=== PATIENT | male | born 1950 | race Caucasian/White ===

== ENCOUNTER 2016-07-30 08:50 | Observation (INO) | payer MEDICARE, OTHER ==
[2016-07-30] VITALS (7 sets, daily range): BP systolic 117–138; BP diastolic 70–77; PULSE 63–69; RESP 18–20; TEMP 97.8; Ht 170.2 cm; Wt 64.5 kg
[~2016-07-30] VITALS: Ht 170.2 cm; Wt 64.5 kg
[~2016-07-30 08:50] MED LIST: HYDR-3498 PO; METF500T4 PO; NAPR-260 PO
[2016-07-30] MEDS ORDERED: NITROGLYCERIN 2% 1 GM OINT PKT TD STA (11:10)
[2016-07-30] MEDS ORDERED: ASPIRIN 81 MG TAB PO STA (11:10)
[2016-07-30] MEDS ORDERED: NITROGLYCERIN (SL) 0.4 MG TAB SL PRN (11:30)
[2016-07-30 11:40] LABS: ADD SCAN DIFF NO
[2016-07-30 11:58] LABS: BASOPHIL # 0.1 10^3/ul (0.0-0.1); BASOPHILS % 1.6 % (0.0-2.0); EOSINOPHILS # 0.1 10^3/ul (0.0-0.5); EOSINOPHILS % 2.3 % (0.0-7.0); HEMATOCRIT 42.3 % (42.0-52.0); LYMPHOCYTES # 2.1 10^3/ul (0.8-2.9); LYMPHOCYTES % 36.7 % (15.0-51.0); MEAN CORPUSCULAR HGB CONC 33.1 g/dl (32.0-37.0); MEAN CORPUSCULAR VOLUME 87.6 fl (82.0-101.0); MEAN PLATELET VOLUME 12.8 fl (7.4-10.4); MONOCYTE # 0.5 10^3/ul (0.3-0.9); MONOCYTES % 9.1 % (0.0-11.0); NEUTROPHIL # 2.8 10^3/ul (1.6-7.5); NEUTROPHILS % 49.9 % (39.0-77.0); PLATELET COUNT 160 10^3/UL (140-415); RED BLOOD COUNT 4.83 10^6/ul (4.70-6.10); RED CELL DISTRIBUTION WIDTH 12.5 % (11.5-14.5); WHITE BLOOD COUNT 5.6 10^3/ul (4.8-10.8)
[2016-07-30 12:04] LABS: CHLORIDE 97 mmol/L (97-110); POTASSIUM 4.5 mmol/L (3.5-5.1); SODIUM 137 mmol/L (135-144)
[2016-07-30 12:06] LABS: CREATININE 0.61 mg/dl (0.61-1.24)
[2016-07-30 12:07] LABS: ANION GAP 14 (8-16); BLOOD UREA NITROGEN 11 mg/dl (7-20); CALCIUM 9.7 mg/dl (8.4-10.2); CARBON DIOXIDE 31 mmol/L (21-31); GLUCOSE 391 mg/dl (70-220); INR 0.97; PARTIAL THROMBOPLASTIN TIME 24.9 Sec (25.0-35.0); PROTIME 12.9 Sec (12.2-14.2)
[2016-07-30 12:26] LABS: TROPONIN-I < 0.012 ng/ml (0.00-0.12)
--- NOTE | 2016-07-30 12:26 | RADRPT ---
PROCEDURE: XR Chest. CLINICAL INDICATION: Chest pain. TECHNIQUE: Single frontal view of the chest was obtained. COMPARISON: 10/06/2014. FINDINGS: Cardiomediastinal silhouette appears normal Pulmonary vasculature appears normal. Lung klein appear clear. Costophrenic angles are well defined. The osseous elements appear intact. IMPRESSION: 1. No evidence for active cardiopulmonary disease. RPTAT: AACC Juan Alberto Johnson Physician Date Time Electronically viewed and signed by Juan Alberto Johnson Physician on 07/30/2016 12:25 /
[2016-07-30] MEDS ORDERED: ACETAMINOPHEN 325 MG TAB PO PRN (12:30)
[2016-07-30] MEDS ORDERED: ONDANSETRON 4 MG INJ IV PRN (12:30)
[2016-07-30] MEDS ORDERED: INSULIN LISPRO 100 UNIT/ML VIAL SC STA (12:33)
--- NOTE | 2016-07-30 13:13 | ERD ---
ER Documentation Chief Complaint Date/Time DATE: 07/30/16 TIME: 13:11 Chief Complaint CHEST PAIN SINCE LAST NIGHT, NO SOB HPI Patient is a 66-year-old male with diabetes who presents with chest pain. He has had this for a few days but last night it was much worse. The pain is constant and left-sided. He also has radiation down his left arm. Upon review of old medical records this is the patient's fourth visit to the ER since 2008. He goes to [facility]. ROS All systems reviewed and are negative except as per history of present illness. Medications Home Meds Reported Medications Metformin* (Glucophage*) 500 Mg Tab, 500 MG PO QAM, TAB 10/06/14 Discontinued Scripts Naproxen* (Naprosyn*) 500 Mg Tablet, 500 MG PO BID Y for PAIN AND/OR INFLAMMATION, #20 TAB Prov:EKTA MATHEW DO 09/27/15 Hydrocodone Bit-Acetaminophen* (Machias*) 5-325 Mg Tab, 1 TAB PO Q6 Y for PAIN, # 15 TAB Prov:EKTA MATHEW DO 09/27/15 Allergies Allergies: Coded Allergies: No Known Allergy (Unverified , 09/27/15) PMhx/Soc Hx Alcohol Use: Yes Hx Substance Use: No Hx Tobacco Use: Yes FmHx Family History: No coronary disease Physical Exam Vitals Vital Signs Date Time Temp Pulse Resp B/P Pulse Ox O2 Delivery O2 Flow Rate FiO2 07/30/16 11:13 97.8 68 14 121/71 100 Room Air 07/30/16 09:06 97.6 73 18 130/74 98 Physical Exam Const: Mild distress Head: Atraumatic Eyes: Normal Conjunctiva ENT: Normal External Ears, Nose and Mouth. Neck: Full range of motion..~ No meningismus. Resp: Clear to auscultation bilaterally Cardio: Regular rate and rhythm, no murmurs Abd: Soft, non tender, non distended. Normal bowel sounds Skin: No petechiae or rashes Back: No midline or flank tenderness Ext: No cyanosis, or edema Neur: Awake and alert Psych: Normal Mood and Affect Result Diagram: 07/30/16 1130 07/30/16 1130 Results 24 hrs Laboratory Tests Test 07/30/16 11:30 Activated Partial Thromboplast Time 24.9Sec Anion Gap 14 Basophils # 0.110^3/ul Basophils % 1.6% Blood Urea Nitrogen 11mg/dl Calcium Level 9.7mg/dl Carbon Dioxide Level 31mmol/L Chloride Level 97mmol/L Creatinine 0.61mg/dl Eosinophils # 0.110^3/ul Eosinophils % 2.3% Glucose Level 391mg/dl Hematocrit 42.3% Hemoglobin 14.0g/dl INR International Normalized Ratio 0.97 Lymphocytes # 2.110^3/ul Lymphocytes % 36.7% Mean Corpuscular Hemoglobin 29.0pg Mean Corpuscular Hemoglobin Concent 33.1g/dl Mean Corpuscular Volume 87.6fl Mean Platelet Volume 12.8fl Monocytes # 0.510^3/ul Monocytes % 9.1% Neutrophils # 2.810^3/ul Neutrophils % 49.9% Nucleated Red Blood Cells # 0.010^3/ul Nucleated Red Blood Cells % 0.0/100WBC Platelet Count 07491^3/UL Potassium Level 4.5mmol/L Prothrombin Time 12.9Sec Prothrombin Time Ratio 1.0 Red Blood Count 4.8310^6/ul Red Cell Distribution Width 12.5% Sodium Level 137mmol/L Troponin I < 0.012ng/ml White Blood Count 5.610^3/ul Current Medications Medications (Trade) Dose Ordered Sig/Adore Route PRN Reason Start Time Stop Time Status Last Admin Dose Admin Aspirin (Aspirin) 162 mg ONCE STAT PO 07/30/16 11:10 07/30/16 11:12 DC 07/30/16 11:33 Nitroglycerin (Nitroglycerin 2% Oint) 1 inch ONCE STAT TD 07/30/16 11:10 07/30/16 11:12 DC 07/30/16 11:34 Nitroglycerin (Nitroglycerin (Sl Tab) 0.4 Mg) 1 tab Q5M UP TO 3 DOSES PRN SL CHEST PAIN 07/30/16 11:30 Ondansetron HCl (Zofran Inj) 4 mg ER BRIDGE PRN IV NAUSEA AND/OR VOMITING 07/30/16 12:30 07/31/16 12:29 Acetaminophen (Tylenol Tab) 650 mg ER BRIDGE PRN PO MILD PAIN/FEVER 07/30/16 12:30 07/31/16 12:29 Insulin Human Lispro (Humalog) 10 unit ONCE STAT SC 07/30/16 12:33 07/30/16 12:37 DC 07/30/16 12:48 Procedures/MDM EKG #1 read by me: Rate/Rhythm: Regular rate and rhythm at a rate of 70 Intervals: Normal Impression: No evidence of ischemia or arrhythmia EKG #2 is pending at this time. Chest x-ray negative per radiology. Smoking Cessation Therapy: Pt. was lectured for greater than 3 minutes on the health risks of continued smoking and the benefits of cessation. Patient is a 66-year-old male with recent smoking as well as diabetes who presents with chest pain. I am concerned for possible acute coronary syndrome. At this point however I doubt pneumonia, pneumothorax, pulmonary embolism, or aortic dissection. I believe the patient will need admission to the hospital for cardiac workup. The patient will be admitted to the care of Dr. Cabrera who admits for [facility] The patient was given aspirin nitroglycerin in the emergency department. Departure Diagnosis: Primary Impression: Hyperglycemia Additional Impression: Chest pain Chest pain type: unspecified Qualified Code: R07.9 - Chest pain, unspecified type Condition: KRISTEN Ta MD Jul 30, 2016 13:13
--- NOTE | 2016-07-30 15:09 | HP ---
Date/Time of Note Date/Time of Note DATE: 07/30/16 TIME: 15:09 Assessment/Plan VTE Prophylaxis VTE Prophylaxis Intervention: LMWH Lines/Catheters IV Catheter Type (from Nrsg): Saline Lock Assessment/Plan Assessment/Plan -Chest pain- R/O ACS - cardiology consult appreciated- Dr Gomez notified - eCHO- fu results -Hyperglycemia - glycemic control - Formes smoker -Smoking Cessation Therapy: reinforced. - Hx Pneumothorax with chest tube. -Lovenox for DVT prophylaxis -Protonix for GI prophylaxis Patient at bed side- all Qs Answered. Dw Dr Cabrera/staff HPI/ROS Admit Date/Time Admit Date/Time Jul 30, 2016 at 14:06 Hx of Present Illness CHEST PAIN SINCE LAST NIGHT, NO SOB HPI Patient is a 66-year-old male with diabetes who presents with chest pain. He has had this for a few days but last night it was much worse. The pain is constant and left-sided. He also has radiation down his left arm. Upon review of old medical records this is the patient's fourth visit to the ER since 2008. He goes to [facility]. ROS All systems reviewed and are negative except as per history of present illness. Medications Home Meds Reported Medications Metformin* (Glucophage*) 500 Mg Tab, 500 MG PO QAM, TAB 10/06/14 Discontinued Scripts Naproxen* (Naprosyn*) 500 Mg Tablet, 500 MG PO BID Y for PAIN AND/OR INFLAMMATION, #20 TAB Prov:EKTA MATHEW DO 09/27/15 Hydrocodone Bit-Acetaminophen* (Wilson*) 5-325 Mg Tab, 1 TAB PO Q6 Y for PAIN, # 15 TAB Prov:EKTA MATHEW DO 09/27/15 Allergies Allergies: Coded Allergies: No Known Allergy (Unverified , 09/27/15) PMH/Family/Social Past Medical History PMhx/Soc Hx Alcohol Use: Yes Hx Substance Use: No Hx Tobacco Use: Yes FmHx Family History: No coronary disease Social History Smoking Status: Former smoker Exam/Review of Systems Vital Signs Vitals Vital Signs Date Time Temp Pulse Resp B/P Pulse Ox O2 Delivery O2 Flow Rate FiO2 07/30/16 14:24 98.0 65 20 138/76 98 Room Air Exam Constitutional: alert, oriented, well developed Psych: no complaints Head: atraumatic Eyes: EOMI, PERRL, nl sclera ENMT: nl external ears & nose Neck: non-tender Respiratory: clear to auscultation Cardiovascular: nl pulses, other (SR HR 60) Gastrointestinal: non-tender, soft Musculoskeletal: nl extremities to inspection Extremities: normal pulses Neurological: nl mental status Skin: nl turgor Lymph: nontender Labs Result Diagram: 07/30/16 1130 07/30/16 1130 Medications Medications Current Medications Insulin Aspart (Novolog Insulin Pen) NOVOLOG *MILD* ALGORI... Q4 SC ; Start 07/30 at 17:00; Status UNV Miscellaneous Information (* Miscellaneous Pharmacy Order) HYPOGLYCEMIA PROTOCOL w... ONCE ONCE XX ; Start 07/30/16 at 15:30; Stop 07/30/16 at 15:31; Status UNV Miscellaneous Information (* Miscellaneous Pharmacy Order) Discontinue Glyburide , Glipizide,... ONCE ONCE XX ; Start 07/30/16 at 15:30; Stop 07/30/16 at 15:31; Status UNV Miscellaneous Information (* Miscellaneous Pharmacy Order) Discontinue all previ... ONCE ONCE XX ; Start 07/30/16 at 15:30; Stop 07/30/16 at 15:31; Status UNV Metformin HCl (Glucophage) 500 mg QAM PO ; Start 07/31/16 at 09:00; Status UNV Procedures Procedures EKG #1 read by me: Rate/Rhythm: Regular rate and rhythm at a rate of 70 Intervals: Normal Impression: No evidence of ischemia or arrhythmia EKG #2 is pending at this time. Chest x-ray negative per radiology. ABENA SCHMIDT Jul 30, 2016 15:09
[2016-07-30 15:28] LABS: CHOL/HDL RATIO 6.4 RATIO; PHOSPHORUS 3.3 mg/dl (2.5-4.9)
[2016-07-30] MEDS ORDERED: GLUCOSE GEL 15 GRAM TUBE BUCCAL PRN (15:30)
[2016-07-30] MEDS ORDERED: GLUCOSE GEL 15 GRAM TUBE PO PRN ×2 (15:30)
[2016-07-30] MEDS ORDERED: GLUCAGON 1 MG INJ IM PRN (15:30)
[2016-07-30] MEDS ORDERED: DEXTROSE 50% 50 ML SYRINGE IV PRN ×2 (15:30)
[2016-07-30 17:07] LABS: CREATINE KINASE 47 IU/L (23-200)
[2016-07-30 17:19] LABS: CK-MB 0.52 ng/ml (0.0-2.4); TROPONIN-I < 0.012 ng/ml (0.00-0.12)
[2016-07-30] MEDS: INSULIN ASPART [NOVOLOG] 3 ML PEN SC SCH ×3 (17:47→21:00)
--- NOTE | 2016-07-30 19:37 | RADRPT ---
Echocardiogram Report Patient Name: ASHKAN ZARCO Gender: Male Date: 1950 Study Date: 30-Jul-2016 Driver'S License Examiner: Michelle Sierra [facility] Location: [address] Ref. Physician: ABENA SCHMIDT Quality: Good Procedures: Transthoracic echocardiogram with complete 2D, M-Mode, and doppler examination. Indications: Chest Pain. 2D/M Mode Doppler Measurement Value Normal Ranges Measurement Value Normal Ranges LVIDd 2D 4.5 3.5 - 5.6 cm AV Peak Jarad 1.1 m/sec LVIDs 2D 2.6 2.1 - 4.1 cm AV Peak PG 5.0 mmHg FS 2D 41.4 % LVOT Peak Jarad 0.8 m/sec LVPWd 2D 0.9 0.6 - 1.1 cm LVOT Peak PG 3.0 mmHg IVSd 2D 1.0 0.6 - 1.1 cm MV E Peak Jarad 0.6 m/sec IVS/LVPW 2D 1.1 MV A Peak Jarad 0.8 m/sec AoR Diam 2D 2.7 2.0 - 3.7 cm MV E/A 0.8 LA/Ao 2D 1 0 - 1 MV Decel Time 239 msec EDV 2D 89.3 cm3 MV E/A 0.8 ESV 2D 18.0 cm3 TR Peak Jarad 1.8 m/sec LA Dimen 2D 2.9 2.3 - 4.0 cm TR Peak PG 13.0 mmHg RVSP 16.0 mmHg Findings Left Ventricle: Normal left ventricular systolic function. Normal left ventricular cavity size. Normal left ventricular wall thickness. Ejection fraction is visually estimated at 65 %. Tissue Doppler/Mitral Doppler indices are consistent with impaired relaxation (Stage I diastolic dysfunction). Right Ventricle: Normal right ventricular size. Normal right ventricular systolic function. Left Atrium: The left atrium is normal in size. Right Atrium: The right atrium is normal in size. Mitral Valve: Mitral valve leaflets appear mildly thickened. Mild mitral annular calcification. Trace mitral regurgitation. Aortic Valve: No hemodynamically significant aortic stenosis by doppler. Non coronary cusp appears moderately calcified. Trace aortic valve regurgitation. Tricuspid Valve: Normal appearance of the tricuspid valve. Estimated peak PA systolic pressure 16 mmHg. There is trace tricuspid regurgitation. Pulmonic Valve: Pulmonic valve not well visualized. Pericardium: Normal pericardium with no significant pericardial effusion. Aorta: Normal aortic root. IVC: Normal size and normal respiratory collapse consistent with normal right atrial pressure. Conclusions Normal left ventricular systolic function. Normal left ventricular cavity size. Normal left ventricular wall thickness. Ejection fraction is visually estimated at 65 %. Tissue Doppler/Mitral Doppler indices are consistent with impaired relaxation (Stage I diastolic dysfunction). Normal right ventricular size. Normal right ventricular systolic function. Mitral valve leaflets appear mildly thickened. Mild mitral annular calcification. Trace mitral regurgitation. No hemodynamically significant aortic stenosis by doppler. Non coronary cusp appears moderately calcified. Trace aortic valve regurgitation. Normal appearance of the tricuspid valve. Estimated peak PA systolic pressure 16 mmHg. There is trace tricuspid regurgitation. Electronically Signed By: Tra Gomez 30-Jul-2016 19:35:57 -0800 Patient Name: ASHKAN ZARCO Study Date: 30-Jul-2016 [id number]
--- NOTE | 2016-07-30 19:46 | CONS ---
Date/Time of Note Date/Time of Note DATE: 07/30/16 TIME: 19:45 Assessment/Plan Assessment/Plan Problems: (1) Back pain Status: Acute (2) Acute pain of left shoulder Status: Acute (3) Chest pain Status: Acute Qualifiers: Qualified Code: R07.9 - Chest pain, unspecified type (4) Hyperglycemia Status: Acute Additional Assessment/Plan Patient with likely costochonddritis Echo done with no wall motion and no valvular abnormalty there is no EKG chagnes trop neg I had long discussion with pt and plan to have out pt stress test with pt. he will ./fu in my office please make apt for him d/c home in AM> Consultation Date/Type/Reason Admit Date/Time Jul 30, 2016 at 14:06 Date of Consultation: Jul 30, 2016 Type of Consultation: Interventional Cardiology Reason for Consultation CP Hx of Present Illness Patient is 66 year old M with PMH of Smoking, HTN, HLD who came in with mid sternal CP, patient has trop neg x 2, EKG no ischemic changes. Patinet had NTG patch but did not relieved at all. Patient's pain is reproducible in nature at this time. Reproducible CP. Constitutional: no complaints Psychological: no complaints Past Medical History Medical History: angina, coronary artery disease Social History Smoking Status: Former smoker Exam/Review of Systems Vital Signs Vitals Vital Signs Date Time Temp Pulse Resp B/P Pulse Ox O2 Delivery O2 Flow Rate FiO2 07/30/16 16:25 69 07/30/16 15:16 98.3 19 117/70 97 07/30/16 14:24 Room Air Exam Constitutional: alert, oriented, well developed Head: normocephalic Eyes: nl conjunctiva ENMT: nl external ears & nose Neck: non-tender, supple Respiratory: clear to auscultation Cardiovascular: regular rate and rhythm Gastrointestinal: soft Musculoskeletal: nl extremities to inspection Results Result Diagram: 07/30/16 1130 07/30/16 1130 Results 24 hrs Laboratory Tests Test 07/30/16 11:30 07/30/16 16:50 07/30/16 17:02 Activated Partial Thromboplast Time 24.9 L Anion Gap 14 Basophils # 0.1 Basophils % 1.6 Blood Urea Nitrogen 11 Calcium Level 9.7 Carbon Dioxide Level 31 Chloride Level 97 Cholesterol Level 220 H Cholesterol/HDL Ratio 6.4 Creatinine 0.61 Eosinophils # 0.1 Eosinophils % 2.3 Glucose Level 391 H HDL Cholesterol 34 Hematocrit 42.3 Hemoglobin 14.0 INR International Normalized Ratio 0.97 LDL Cholesterol, Calculated 91 Lymphocytes # 2.1 Lymphocytes % 36.7 Mean Corpuscular Hemoglobin 29.0 Mean Corpuscular Hemoglobin Concent 33.1 Mean Corpuscular Volume 87.6 Mean Platelet Volume 12.8 H Monocytes # 0.5 Monocytes % 9.1 Neutrophils # 2.8 Neutrophils % 49.9 Nucleated Red Blood Cells # 0.0 Nucleated Red Blood Cells % 0.0 Phosphorus Level 3.3 Platelet Count 160 Potassium Level 4.5 Prothrombin Time 12.9 Prothrombin Time Ratio 1.0 Red Blood Count 4.83 Red Cell Distribution Width 12.5 Sodium Level 137 Triglycerides Level 477 H Troponin I < 0.012 < 0.012 White Blood Count 5.6 # Creatine Kinase 47 Creatine Kinase Index 1.1 Creatinine Kinase MB (Mass) 0.52 Bedside Glucose 233 H Medications Medications Current Medications Insulin Aspart (Novolog Insulin Pen) NOVOLOG *MILD* ALGORI... Q4 SC Last administered on 07/30/16t 17:47; Admin Dose 3 UNIT; Start 07/30/16 at 17:00 Enoxaparin Sodium (Lovenox) 30 mg DAILY SC ; Start 07/31/16 at 09:00 Insulin Glargine (Lantus) 15 unit DAILY@20 SC ; Start 07/30/16 at 20:00 Miscellaneous Information 1 ea NOTE XX ; Start 07/30/16 at 15:30 Glucose (Glutose) 15 gm Q15M PRN PO DECREASED GLUCOSE; Start 07/30/16 at 15:30 Glucose (Glutose) 22.5 gm Q15M PRN PO DECREASED GLUCOSE; Start 07/30/16 at 15:30 Dextrose (D50w Syringe) 25 ml Q15M PRN IV DECREASED GLUCOSE; Start 07/30/16 at 15:30 Dextrose (D50w Syringe) 50 ml Q15M PRN IV DECREASED GLUCOSE; Start 07/30/16 at 15:30 Glucagon (Glucagen) 1 mg Q15M PRN IM DECREASED GLUCOSE; Start 07/30/16 at 15:30 Glucose (Glutose) 15 gm Q15M PRN BUCCAL DECREASED GLUCOSE; Start 07/30/16 at 15: 30 HAYDEN ERWIN MD Jul 30, 2016 19:46
[2016-07-30] MEDS ORDERED: INSULIN GLARGINE [LANtus] 3 ML PEN SC SCH (20:00)
[2016-07-30 23:28] LABS: CREATINE KINASE 42 IU/L (23-200)
[2016-07-30 23:40] LABS: CK-MB 0.43 ng/ml (0.0-2.4)
[2016-07-30 23:45] LABS: TROPONIN-I < 0.012 ng/ml (0.00-0.12)
[2016-07-31] VITALS (11 sets, daily range): BP systolic 111–128; BP diastolic 67–79; PULSE 66–76; RESP 16–20
[2016-07-31] MEDS: INSULIN ASPART [NOVOLOG] 3 ML PEN SC SCH ×9 (01:29→20:51)
[2016-07-31 06:15] LABS: ADD SCAN DIFF NO
[2016-07-31 06:22] LABS: BASOPHIL # 0.1 10^3/ul (0.0-0.1); BASOPHILS % 1.5 % (0.0-2.0); EOSINOPHILS # 0.2 10^3/ul (0.0-0.5); EOSINOPHILS % 3.7 % (0.0-7.0); HEMATOCRIT 43.1 % (42.0-52.0); HEMOGLOBIN 14.2 g/dl (14.0-18.0); LYMPHOCYTES # 1.7 10^3/ul (0.8-2.9); MEAN CORPUSCULAR HEMOGLOBIN 29.2 pg (29.0-33.0); MEAN CORPUSCULAR HGB CONC 32.9 g/dl (32.0-37.0); MEAN CORPUSCULAR VOLUME 88.5 fl (82.0-101.0); MEAN PLATELET VOLUME 12.6 fl (7.4-10.4); MONOCYTE # 0.5 10^3/ul (0.3-0.9); MONOCYTES % 9.3 % (0.0-11.0); NEUTROPHIL # 2.9 10^3/ul (1.6-7.5); NEUTROPHILS % 53.3 % (39.0-77.0); PLATELET COUNT 165 10^3/UL (140-415); RED BLOOD COUNT 4.87 10^6/ul (4.70-6.10); RED CELL DISTRIBUTION WIDTH 12.6 % (11.5-14.5); WHITE BLOOD COUNT 5.4 10^3/ul (4.8-10.8)
[2016-07-31 06:52] LABS: POTASSIUM 3.9 mmol/L (3.5-5.1)
[2016-07-31 06:55] LABS: CREATININE 0.6 mg/dl (0.61-1.24)
[2016-07-31 06:56] LABS: CALCIUM 9.5 mg/dl (8.4-10.2)
[2016-07-31] MEDS ORDERED: morphine 2 MG INJ IV PRN (07:00)
[2016-07-31] MEDS: metFORMIN 500 MG TAB PO SCH (08:20)
[2016-07-31] MEDS: ENOXAPARIN 30 MG/0.3 ML SYG SC SCH (08:22)
--- NOTE | 2016-07-31 14:39 | PN ---
Date/Time of Note Date/Time of Note DATE: 07/31/16 TIME: 14:32 Assessment/Plan VTE Prophylaxis VTE Prophylaxis Intervention: SCD's Lines/Catheters IV [facility]ter [facility] (from [facility]): Saline Lock Assessment/Plan Chief Complaint/Hosp Course Assessment/Plan - Chest pain, acute coronary syndrome ruled out. Patient is followed by Dr. Gomez in cardiology consultation with recommendation for outpatient cardiac cath. Continue aspirin. - Poorly controlled diabetes mellitus type 2 with hemoglobin A1c is 14.7. Dr. Matos is asked to see patient in endocrinology consultation. Diabetic education. Continue Lantus and pre-meal NovoLog as well as NovoLog per mild algorithm sliding scale. - Hypercholesterolemia uremia with increased triglycerides, will start TriCor. Further recommendations based on clinical course. Plan of care discussed with Dr. Cabrera. Problems: Subjective 24 Hr Interval Summary Free Text/Dictation Patient denies any chest pain, sinus rhythm on telemetry, patient's blood sugar is in 300s range, patient stated that she takes metformin at home hemoglobin and A1c is 14.7, discussed with patient starting insulin, patient also need diabetic education. Exam/Review of Systems Vital Signs Vitals Vital Signs Date Time Temp Pulse Resp B/P Pulse Ox O2 Delivery O2 Flow Rate FiO2 07/31/16 12:34 76 07/31/16 11:09 98.2 19 128/79 98 07/30/16 14:24 Room Air Intake and Output 07/30/16 07/30/16 07/31/16 15:00 23:00 07:00 Intake Total 480 ml 200 ml Output Total 400 ml Balance -400 ml 480 ml 200 ml Exam Constitutional: alert, oriented Psych: no complaints Head: atraumatic, normocephalic Eyes: nl conjunctiva ENMT: nl external ears & nose Neck: non-tender, supple Respiratory: clear to auscultation, normal air movement Cardiovascular: nl pulses, regular rate and rhythm Gastrointestinal: non-tender, soft Musculoskeletal: nl extremities to inspection Extremities: normal pulses Neurological: FULFILLMENT REPRESENTATIVE II-XII intact Skin: nl turgor Results Result Diagram: 07/31/16 0525 07/31/16 0545 Results 24 hrs Laboratory Tests Test 07/30/16 16:50 07/30/16 17:02 07/30/16 20:46 07/30/16 23:05 Creatine Kinase 47 42 Creatine Kinase Index 1.1 1.0 Creatinine Kinase MB (Mass) 0.52 0.43 Troponin I < 0.012 < 0.012 Bedside Glucose 233 H 187 Test 07/31/16 01:14 07/31/16 05:25 07/31/16 05:40 07/31/16 05:45 Bedside Glucose 365 H 306 H Basophils # 0.1 Basophils % 1.5 Eosinophils # 0.2 Eosinophils % 3.7 Hematocrit 43.1 Hemoglobin 14.2 Hemoglobin A1c 14.7 H Lymphocytes # 1.7 Lymphocytes % 32.0 Magnesium Level 1.9 Mean Corpuscular Hemoglobin 29.2 Mean Corpuscular Hemoglobin Concent 32.9 Mean Corpuscular Volume 88.5 Mean Platelet Volume 12.6 H Monocytes # 0.5 Monocytes % 9.3 Neutrophils # 2.9 Neutrophils % 53.3 Nucleated Red Blood Cells # 0.0 Nucleated Red Blood Cells % 0.0 Platelet Count 165 Red Blood Count 4.87 Red Cell Distribution Width 12.6 White Blood Count 5.4 Anion Gap 15 Blood Urea Nitrogen 11 Calcium Level 9.5 Carbon Dioxide Level 28 Chloride Level 100 Creatinine 0.60 L Glucose Level 283 #H Potassium Level 3.9 Sodium Level 139 Test 07/31/16 08:18 07/31/16 11:54 Bedside Glucose 194 208 Medications Medications Current Medications Insulin Aspart (Novolog Insulin Pen) NOVOLOG *MILD* ALGORI... Q4 SC Last administered on 07/31/16 12:23; Admin Dose 2 UNIT; Start 07/30/16 at 17:00 Enoxaparin Sodium (Lovenox) 30 mg DAILY SC Last administered on 07/31/16 08:22 ; Admin Dose 30 MG; Start 07/31/16 at 09:00 Insulin Glargine (Lantus) 15 unit DAILY@20 SC Last administered on 07/30/16 20: 53; Admin Dose 15 UNIT; Start 07/30/16 at 20:00 Miscellaneous Information 1 ea NOTE XX ; Start 07/30/16 at 15:30 Glucose (Glutose) 15 gm Q15M PRN PO DECREASED GLUCOSE; Start 07/30/16 at 15:30 Glucose (Glutose) 22.5 gm Q15M PRN PO DECREASED GLUCOSE; Start 07/30/16 at 15:30 Dextrose (D50w Syringe) 25 ml Q15M PRN IV DECREASED GLUCOSE; Start 07/30/16 at 15:30 Dextrose (D50w Syringe) 50 ml Q15M PRN IV DECREASED GLUCOSE; Start 07/30/16 at 15:30 Glucagon (Glucagen) 1 mg Q15M PRN IM DECREASED GLUCOSE; Start 07/30/16 at 15:30 Glucose (Glutose) 15 gm Q15M PRN BUCCAL DECREASED GLUCOSE; Start 07/30/16 at 15: 30 Morphine Sulfate (morphine) 2 mg Q4H PRN IV MODERATE PAIN LEVEL 4-6; Start 03/09 at 07:00 IDALMIS CIFUENTES Jul 31, 2016 14:39
[2016-07-31] MEDS: ASPIRIN 81 MG TAB PO SCH (15:20)
--- NOTE | 2016-07-31 17:07 | CONS ---
Date/Time of Note Date/Time of Note DATE: 07/31/16 TIME: 17:01 Assessment/Plan Assessment/Plan Problems: (1) Type 2 diabetes mellitus with hyperglycemia Status: Chronic Comment: Weight-based insulin: Lantus 16 qhs, Novolog 8 qac. Will follow and monitor, titrating insulin doses up or down daily. Qualifiers: Qualified Code: E11.65 - Type 2 diabetes mellitus with hyperglycemia, without long-term current use of insulin Consultation Date/Type/Reason Admit Date/Time Jul 30, 2016 at 14:06 Date of Consultation: Jul 31, 2016 Type of Consultation: Endocrinology Reason for Consultation DM out of control (OOC) Referring Provider: IDALMIS CIFUENTES Hx of Present Illness 66 y/o H M w/ h/o T2DM x 7-10 y in [facility] until recent period when he developed L- sided CP. Decided to present to [facility] for this. All studies on heart normal including negative troponins. Glucose levels elevated and A1c > 14%. Pt. admits to > 20# weight loss. Insists problem is his heart despite reproducibility of chest pain on physical exam. Constitutional: no complaints Eyes: no complaints ENT: no complaints Respiratory: no complaints Cardiovascular: chest pain Gastrointestinal: no complaints Genitourinary: no complaints Musculoskeletal: no complaints Neurologic: no complaints Endocrine: no complaints Psychological: no complaints Past Medical History Medical History: diabetes Past Surgical History Past Surgical Hx: other (chest tube for spontaneous pneumothorax) Family History Significant Family History: heart disease (ND in father), diabetes (both parents) Social History b. 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, , 4 children Alcohol Use: occasionally (2-3 light beers not every weekend) Smoking Status: Former smoker (1 ppd x 50 y, quit 5 months ago) Drug Use: none Exam/Review of Systems Vital Signs Vitals VS - Last 72 Hours, by Label Date Time Temp Pulse Resp B/P Pulse Ox O2 Delivery O2 Flow Rate FiO2 07/31/16 16:20 73 07/31/16 15:00 97.6 73 18 118/76 99 07/31/16 12:34 76 07/31/16 11:09 98.2 70 19 128/79 98 07/31/16 08:11 68 07/31/16 07:14 97.6 68 19 122/78 96 07/31/16 04:42 98.4 73 20 124/78 98 07/31/16 04:34 66 07/31/16 00:52 66 07/31/16 00:17 98.2 70 20 111/67 97 07/30/16 20:35 67 07/30/16 20:21 97.7 68 18 132/77 97 07/30/16 16:25 69 07/30/16 15:16 98.3 64 19 117/70 97 07/30/16 14:24 98.0 65 20 138/76 98 Room Air 07/30/16 14:19 63 07/30/16 13:45 63 15 137/85 99 07/30/16 11:13 97.8 68 14 121/71 100 Room Air 07/30/16 09:06 97.6 73 18 130/74 98 Vital Signs Date Time Temp Pulse Resp B/P Pulse Ox O2 Delivery O2 Flow Rate FiO2 07/31/16 16:20 73 07/31/16 15:00 97.6 18 118/76 99 07/30/16 14:24 Room Air Intake and Output 07/30/16 07/30/16 07/31/16 15:00 23:00 07:00 Intake Total 480 ml 200 ml Output Total 400 ml Balance -400 ml 480 ml 200 ml Exam Constitutional: alert, oriented, well developed Psych: nl mood/affect, no complaints Eyes: EOMI, PERRL, nl conjunctiva, nl lids, nl sclera ENMT: mucosa pink and moist, nl external ears & nose Neck: non-tender, supple, No bruits, No masses, No thyromegaly Respiratory: clear to auscultation, normal air movement Cardiovascular: nl pulses, regular rate and rhythm, No edema, No murmurs/extra sounds, No rub Gastrointestinal: bowel sounds, nl liver, spleen, non-tender, soft, No mass, No rebound or guarding Musculoskeletal: nl extremities to inspection, other (chest TTP on L side) Extremities: normal pulses, No clubbing, No cyanosis, No edema Neurological: [employer] II-XII intact, nl mental status, nl speech, nl strength Additional Comments Bedside Glucose - 72 Hours Test 07/30/16 17:02 07/30/16 20:46 07/31/16 01:14 07/31/16 05:40 Bedside Glucose 233mg/dL (70-220) H 187mg/dL (70-220) 365mg/dL (70-220) H 306mg/dL (70-220) H Test 07/31/16 08:18 07/31/16 11:54 Bedside Glucose 194mg/dL (70-220) 208mg/dL (70-220) Results Result Diagram: 07/31/16 0525 07/31/16 0545 Results 24 hrs Laboratory Tests Test 07/30/16 17:02 07/30/16 20:46 07/30/16 23:05 07/31/16 01:14 Bedside Glucose 233 H 187 365 H Creatine Kinase 42 Creatine Kinase Index 1.0 Creatinine Kinase MB (Mass) 0.43 Troponin I < 0.012 Test 07/31/16 05:25 07/31/16 05:40 07/31/16 05:45 07/31/16 08:18 Basophils # 0.1 Basophils % 1.5 Eosinophils # 0.2 Eosinophils % 3.7 Hematocrit 43.1 Hemoglobin 14.2 Hemoglobin A1c 14.7 H Lymphocytes # 1.7 Lymphocytes % 32.0 Magnesium Level 1.9 Mean Corpuscular Hemoglobin 29.2 Mean Corpuscular Hemoglobin Concent 32.9 Mean Corpuscular Volume 88.5 Mean Platelet Volume 12.6 H Monocytes # 0.5 Monocytes % 9.3 Neutrophils # 2.9 Neutrophils % 53.3 Nucleated Red Blood Cells # 0.0 Nucleated Red Blood Cells % 0.0 Platelet Count 165 Red Blood Count 4.87 Red Cell Distribution Width 12.6 White Blood Count 5.4 Bedside Glucose 306 H 194 Anion Gap 15 Blood Urea Nitrogen 11 Calcium Level 9.5 Carbon Dioxide Level 28 Chloride Level 100 Creatinine 0.60 L Glucose Level 283 #H Potassium Level 3.9 Sodium Level 139 Test 07/31/16 11:54 Bedside Glucose 208 Medications Medications Current Medications Insulin Aspart (Novolog Insulin Pen) NOVOLOG *MILD* ALGORI... Q4 SC Last administered on 07/31/16 12:23; Admin Dose 2 UNIT; Start 07/30/16 at 17:00 Enoxaparin Sodium (Lovenox) 30 mg DAILY SC Last administered on 07/31/16 08:22 ; Admin Dose 30 MG; Start 07/31/16 at 09:00 Miscellaneous Information 1 ea NOTE XX ; Start 07/30/16 at 15:30 Glucose (Glutose) 15 gm Q15M PRN PO DECREASED GLUCOSE; Start 07/30/16 at 15:30 Glucose (Glutose) 22.5 gm Q15M PRN PO DECREASED GLUCOSE; Start 07/30/16 at 15:30 Dextrose (D50w Syringe) 25 ml Q15M PRN IV DECREASED GLUCOSE; Start 07/30/16 at 15:30 Dextrose (D50w Syringe) 50 ml Q15M PRN IV DECREASED GLUCOSE; Start 07/30/16 at 15:30 Glucagon (Glucagen) 1 mg Q15M PRN IM DECREASED GLUCOSE; Start 07/30/16 at 15:30 Glucose (Glutose) 15 gm Q15M PRN BUCCAL DECREASED GLUCOSE; Start 07/30/16 at 15: 30 Morphine Sulfate (morphine) 2 mg Q4H PRN IV MODERATE PAIN LEVEL 4-6; Start 03/09 at 07:00 Aspirin (Aspirin) 81 mg DAILY PO Last administered on 07/31/16t 15:20; Admin Dose 81 MG; Start 07/31/16 at 15:00 Fenofibrate (Tricor) 145 mg DAILY PO ; Start 08/01/16 at 09:00 Insulin Glargine (Lantus) 16 unit DAILY@20 SC ; Start 07/31/16 at 20:00 ANTONI NEFF MD Jul 31, 2016 17:07
[2016-07-31] MEDS ORDERED: INSULIN GLARGINE [LANtus] 3 ML PEN SC SCH (20:00)
[2016-08-01] MEDS: INSULIN ASPART [NOVOLOG] 3 ML PEN SC SCH ×6 (01:00→12:44)
[2016-08-01 06:10] LABS: ADD SCAN DIFF NO
[2016-08-01 06:17] LABS: BASOPHIL # 0.1 10^3/ul (0.0-0.1); BASOPHILS % 1.3 % (0.0-2.0); EOSINOPHILS # 0.2 10^3/ul (0.0-0.5); EOSINOPHILS % 3.7 % (0.0-7.0); HEMATOCRIT 44.1 % (42.0-52.0); HEMOGLOBIN 14.6 g/dl (14.0-18.0); LYMPHOCYTES # 2.4 10^3/ul (0.8-2.9); LYMPHOCYTES % 38.1 % (15.0-51.0); MEAN CORPUSCULAR HEMOGLOBIN 29.3 pg (29.0-33.0); MEAN CORPUSCULAR HGB CONC 33.1 g/dl (32.0-37.0); MEAN CORPUSCULAR VOLUME 88.4 fl (82.0-101.0); MEAN PLATELET VOLUME 12.4 fl (7.4-10.4); MONOCYTE # 0.5 10^3/ul (0.3-0.9); MONOCYTES % 8.8 % (0.0-11.0); NEUTROPHILS % 47.9 % (39.0-77.0); PLATELET COUNT 152 10^3/UL (140-415); RED BLOOD COUNT 4.99 10^6/ul (4.70-6.10); WHITE BLOOD COUNT 6.2 10^3/ul (4.8-10.8)
[2016-08-01 06:25] LABS: POTASSIUM 3.9 mmol/L (3.5-5.1)
[2016-08-01 06:27] LABS: CREATININE 0.67 mg/dl (0.61-1.24)
[2016-08-01 06:28] LABS: CALCIUM 9.3 mg/dl (8.4-10.2)
[2016-08-01 07:57] VITALS: BP 136/72; RESP 18
[2016-08-01] MEDS: ASPIRIN 81 MG TAB PO SCH (08:40)
[2016-08-01] MEDS: metFORMIN 500 MG TAB PO SCH (08:40)
[2016-08-01] MEDS ORDERED: FENOFIBRATE 145 MG TAB PO SCH (09:00)
[2016-08-01] MEDS: ENOXAPARIN 30 MG/0.3 ML SYG SC SCH (09:15)
--- NOTE | 2016-08-01 09:38 | CONS ---
Date/Time of Note Date/Time of Note DATE: 08/01/16 TIME: 09:36 Assessment/Plan Assessment/Plan Problems: (1) Chest pain Status: Acute Comment: As per primary team. I do not believe this represents cardiac pathology. It may be a consideration to do finer imaging of the chest using CT especially given the abnormal weight loss. I will defer this off to the primary care team Qualifiers: Chest pain type: unspecified Qualified Code: R07.9 - Chest pain, unspecified type (2) Type 2 diabetes mellitus with hyperglycemia Status: Chronic Comment: Blood sugar controls are doing nicely on a controlled dietary setting using a combination of equity holder with insulin. Is very likely has a certain degree of insulin O herson and needs to be on insulin therapy Qualifiers: Diabetes mellitus nursing home insulin use: without nursing home use Qualified Code: E11.65 - Type 2 diabetes mellitus with hyperglycemia, without long-term current use of insulin (3) Mixed hyperlipidemia due to type 2 diabetes mellitus Status: Chronic Comment: He is on appropriate treatment (4) Abnormal weight loss Status: Acute Comment: This will be decided to evaluate by the primary care team Consultation Date/Type/Reason Admit Date/Time Jul 30, 2016 at 14:06 Initial Consult Date 07/31/16 Type of Consultation: Endocrinology Reason for Consultation Diabetes mellitus with poor control Referring Provider: IDALMIS CIFUENTES 24 HR Interval Summary Constitutional: no complaints Detailed Summary Respiratory: no complaints Cardiovascular: chest pain (Left wall chest pain pleuritic in nature) Gastrointestinal: no complaints Genitourinary: no complaints Exam/Review of Systems Vital Signs Vitals Vital Signs Date Time Temp Pulse Resp B/P Pulse Ox O2 Delivery O2 Flow Rate FiO2 08/01/16 07:57 98.9 68 18 136/72 96 07/30/16 14:24 Room Air Intake and Output 07/31/16 07/31/16 08/01/16 15:00 23:00 07:00 Intake Total 870 ml 200 ml Output Total 600 ml Balance 270 ml 200 ml Exam Constitutional: alert, oriented Neck: non-tender, supple Respiratory: clear to auscultation, normal air movement, other (Reproducible chest wall pain) Cardiovascular: nl pulses, regular rate and rhythm Results Result Diagram: 08/01/16 0510 08/01/16 0510 Results 24 hrs Laboratory Tests Test 07/31/16 11:54 07/31/16 17:08 07/31/16 20:50 08/01/16 01:20 Bedside Glucose 208 128 132 131 Test 08/01/16 05:10 08/01/16 05:19 08/01/16 07:49 Anion Gap 16 Basophils # 0.1 Basophils % 1.3 Blood Urea Nitrogen 15 Calcium Level 9.3 Carbon Dioxide Level 25 Chloride Level 101 Creatinine 0.67 Eosinophils # 0.2 Eosinophils % 3.7 Glucose Level 159 # Hematocrit 44.1 Hemoglobin 14.6 Lymphocytes # 2.4 Lymphocytes % 38.1 Mean Corpuscular Hemoglobin 29.3 Mean Corpuscular Hemoglobin Concent 33.1 Mean Corpuscular Volume 88.4 Mean Platelet Volume 12.4 H Monocytes # 0.5 Monocytes % 8.8 Neutrophils # 3.0 Neutrophils % 47.9 Nucleated Red Blood Cells # 0.0 Nucleated Red Blood Cells % 0.0 Platelet Count 152 Potassium Level 3.9 Red Blood Count 4.99 Red Cell Distribution Width 13.0 Sodium Level 138 White Blood Count 6.2 Bedside Glucose 150 183 Medications Medications Current Medications Insulin Aspart (Novolog Insulin Pen) NOVOLOG *MILD* ALGORI... Q4 SC Last administered on 08/01/16 09:16; Admin Dose 1 UNIT; Start 07/30/16 at 17:00 Enoxaparin Sodium (Lovenox) 30 mg DAILY SC Last administered on 08/01/16 09:15 ; Admin Dose 30 MG; Start 07/31/16 at 09:00 Miscellaneous Information 1 ea NOTE XX ; Start 07/30/16 at 15:30 Glucose (Glutose) 15 gm Q15M PRN PO DECREASED GLUCOSE; Start 07/30/16 at 15:30 Glucose (Glutose) 22.5 gm Q15M PRN PO DECREASED GLUCOSE; Start 07/30/16 at 15:30 Dextrose (D50w Syringe) 25 ml Q15M PRN IV DECREASED GLUCOSE; Start 07/30/16 at 15:30 Dextrose (D50w Syringe) 50 ml Q15M PRN IV DECREASED GLUCOSE; Start 07/30/16 at 15:30 Glucagon (Glucagen) 1 mg Q15M PRN IM DECREASED GLUCOSE; Start 07/30/16 at 15:30 Glucose (Glutose) 15 gm Q15M PRN BUCCAL DECREASED GLUCOSE; Start 07/30/16 at 15: 30 Morphine Sulfate (morphine) 2 mg Q4H PRN IV MODERATE PAIN LEVEL 4-6; Start 03/09 at 07:00 Aspirin (Aspirin) 81 mg DAILY PO Last administered on 08/01/16 08:40; Admin Dose 81 MG; Start 07/31/16 at 15:00 Fenofibrate (Tricor) 145 mg DAILY PO Last administered on 08/01/16 08:41; Admin Dose 145 MG; Start 08/01/16 at 09:00 Insulin Glargine (Lantus) 16 unit DAILY@20 SC Last administered on 07/31/16 20 :55; Admin Dose 16 UNIT; Start 07/31/16 at 20:00 CARIN LEAL MD Aug 01, 2016 09:38
[2016-08-01] MEDS ORDERED: ASPI81TA3 PO (11:03)
[2016-08-01] MEDS ORDERED: FENO145T19 PO (11:03)
[2016-08-01] MEDS ORDERED: NIT4 SL (11:03)
[2016-08-01] MEDS ORDERED: NOVO3I SC (11:08)
[2016-08-01] MEDS ORDERED: LANT3I SC (11:08)
--- NOTE | 2016-08-01 11:34 | DS ---
Date/Time of Note Date/Time of Note DATE: 08/01/16 TIME: 11:33 Discharge Summary Admission/Discharge Info Admit Date/Time Jul 30, 2016 at 14:06 Discharge Date/Time Patient Condition: Stable Hx of Present Illness CHEST PAIN SINCE LAST NIGHT, NO SOB HPI Patient is a 66-year-old male with diabetes who presents with chest pain. He has had this for a few days but last night it was much worse. The pain is constant and left-sided. He also has radiation down his left arm. Upon review of old medical records this is the patient's fourth visit to the ER since 2008. He goes to [facility]. ROS All systems reviewed and are negative except as per history of present illness. Medications Home Meds Reported Medications Metformin* (Glucophage*) 500 Mg Tab, 500 MG PO QAM, TAB 10/06/14 Discontinued Scripts Naproxen* (Naprosyn*) 500 Mg Tablet, 500 MG PO BID Y for PAIN AND/OR INFLAMMATION, #20 TAB Prov:EKTA MATHEW DO 09/27/15 Hydrocodone Bit-Acetaminophen* (Madison*) 5-325 Mg Tab, 1 TAB PO Q6 Y for PAIN, # 15 TAB Prov:EKTA MATHEW DO 09/27/15 Allergies Allergies: Coded Allergies: No Known Allergy (Unverified , 09/27/15) Hospital Course 66 y/o H M w/ h/o T2DM x 7-10 y in [facility] until recent period when he developed L- sided CP. Decided to present to [facility] for this. All studies on heart normal including negative troponins. Glucose levels elevated and A1c > 14%. Pt. admits to > 20# weight loss. Insists problem is his heart despite reproducibility of chest pain on physical exam. Home Meds Active Scripts Insulin Glargine* (Lantus*) 100 Unit/Ml Soln, 16 UNIT SC DAILY@20 for 30 Days Prov:ABENA SCHMIDT 08/01/16 Insulin Aspart* (Novolog Insulin Pen*) 100 Unit/Ml Soln, 8 UNIT SC WITH MEALS for 30 Days Prov:ABENA SCHMIDT 08/01/16 Nitroglycerin* (Nitrostat*) 0.4 Mg Tab.subl, 1 TAB SL .Q5M UP TO 3 DOSES Y for CHEST PAIN for 30 Days Prov:BRAYANABENA 08/01/16 Fenofibrate Nanocrystallized* (Fenofibrate*) 145 Mg Tablet, 145 MG PO DAILY for 30 Days, TAB Prov:BRAYANABENA 08/01/16 Aspirin (Aspirin) 81 Mg Chew, 81 MG PO DAILY for 30 Days, TAB Prov:BRAYANABENA 08/01/16 Reported Medications Metformin* (Glucophage*) 500 Mg Tab, 500 MG PO QAM, TAB 10/06/14 Discontinued Scripts Naproxen* (Naprosyn*) 500 Mg Tablet, 500 MG PO BID Y for PAIN AND/OR INFLAMMATION, #20 TAB Prov:EKTA MATHEW DO 09/27/15 Hydrocodone Bit-Acetaminophen* (Madison*) 5-325 Mg Tab, 1 TAB PO Q6 Y for PAIN, # 15 TAB Prov:EKTA MATHEW 09/27/15 Pending Labs Laboratory Tests Test 07/31/16 11:54 07/31/16 17:08 07/31/16 20:50 08/01/16 01:20 Bedside Glucose 208mg/dL (70-220) 128mg/dL (70-220) 132mg/dL (70-220) 131mg/dL (70-220) Test 08/01/16 05:10 08/01/16 05:19 08/01/16 07:49 Anion Gap 16 (8-16) Basophils # 0.110^3/ul (0.0-0.1) Basophils % 1.3% (0.0-2.0) Blood Urea Nitrogen 15mg/dl (7-20) Calcium Level 9.3mg/dl (8.4-10.2) Carbon Dioxide Level 25mmol/L (21-31) Chloride Level 101mmol/L (97-110) Creatinine 0.67mg/dl (0.61-1.24) Eosinophils # 0.210^3/ul (0.0-0.5) Eosinophils % 3.7% (0.0-7.0) Glucose Level 159mg/dl (70-220) Hematocrit 44.1% (42.0-52.0) Hemoglobin 14.6g/dl (14.0-18.0) Hepatitis B Surface Antigen NEGATIVE (NEGATIVE) Hepatitis C Antibody NEGATIVE (NEGATIVE) Lymphocytes # 2.410^3/ul (0.8-2.9) Lymphocytes % 38.1% (15.0-51.0) Mean Corpuscular Hemoglobin 29.3pg (29.0-33.0) Mean Corpuscular Hemoglobin Concent 33.1g/dl (32.0-37.0) Mean Corpuscular Volume 88.4fl (82.0-101.0) Mean Platelet Volume 12.4fl (7.4-10.4) Monocytes # 0.510^3/ul (0.3-0.9) Monocytes % 8.8% (0.0-11.0) Neutrophils # 3.010^3/ul (1.6-7.5) Neutrophils % 47.9% (39.0-77.0) Nucleated Red Blood Cells # 0.010^3/ul (0.0-0.0) Nucleated Red Blood Cells % 0.0/100WBC (0.0-0.0) Platelet Count 48075^3/UL (140-415) Potassium Level 3.9mmol/L (3.5-5.1) Red Blood Count 4.9910^6/ul (4.70-6.10) Red Cell Distribution Width 13.0% (11.5-14.5) Sodium Level 138mmol/L (135-144) Thyroid Stimulating Hormone (TSH) 2.770MIU/L (0.465-4.680) White Blood Count 6.210^3/ul (4.8-10.8) Bedside Glucose 150mg/dL (70-220) 183mg/dL (70-220) ABENA SCHMIDT Aug 01, 2016 11:33
[2016-08-01] MEDS ORDERED: metFORMIN 500 MG TAB PO SCH (17:45)
== END 2016-08-01 13:28 | disposition home or self-care (01) ==
LOC: E/R 08:50 → INTOOBSV 14:06 → TEL 14:06 → MS2 07-31 20:10
PROVIDERS: ADMIT Internal Medicine; ATTEND Internal Medicine
DX: R07.9 Chest pain, unspecified (principal); Z87.891 Personal history of nicotine dependence; E11.65 Type 2 diabetes mellitus with hyperglycemia; E78.5 Hyperlipidemia, unspecified; R63.4 Abnormal weight loss
CPT/HCPCS: 36415; 71010; 80048; 80061; 82550; 82553; 82962; 83036; 83735; 84100; 84443; 84484; 85025; 85610; 85730; 86803; 87340; 93005; 93306; 96372; J1650; J1815; Z7500; Z7502; Z7610; 99217; G0378

== ENCOUNTER 2017-04-21 14:33 | Emergency (ER) | payer MEDICARE, OTHER ==
[~2017-04-21] VITALS: Ht 152.4 cm; Wt 73.0 kg
[~2017-04-21 14:33] MED LIST changes: +ASPI81TA3 PO; +FENO145T19 PO; -HYDR-3498 PO; +LANT3I SC; -NAPR-260 PO; +NIT4 SL; +NOVO3I SC
[2017-04-21 14:36] VITALS: Ht 152.4 cm; Wt 73.0 kg
--- NOTE | 2017-04-21 16:14 | ERD ---
ER Documentation Chief Complaint Chief Complaint LEFT UPPER BACK PAIN X MOS HPI 67-year-old male, with history of diabetes and recurrent back pain presents to the emergency department complaining of worsening of back pain for the last 4 days. The pain is located on the left upper back, dull, 7/10, constant. Per patient, the symptoms are probably caused by sleeping in the wrong position or lifting heavy boxes. Aggravating factors: Lateral rotation and direct palpation. Alleviating factors: Motrin. Denies fevers, chills, no nausea, no vomiting, no diarrhea, no weakness, no tingling, no incontinence. History was given by patient. ROS SYSTEMIC symptoms: no fever, chills, no night sweats, no weight loss EYE symptoms: No blurred vision, no eye discharge OTOLARYNGEAL symptoms: No hearing loss. No ear pain, no sore throat CARDIOVASCULAR symptoms: No chest pain or discomfort, no palpitations. PULMONARY symptoms: No dyspnea, no cough, no wheezing. GASTROINTESTINAL symptoms: No abdominal pain, no nausea, no vomiting, no diarrhea MUSCULOSKELETAL symptoms: No arthralgias, no muscle aches. NEUROLOGY symptoms: No confusion, no syncope, no numbness or tingling. SKIN: No rashes Medications Home Meds Active Scripts Hydrocodone/Acetaminophen (Marion 5-325 Tablet) 1 Each Tablet, 1 TAB PO Q6H Y for PAIN, #12 TAB Prov:SANTIAGO FLORES MD 04/21/17 Insulin Glargine* (Lantus*) 100 Unit/Ml Soln, 16 UNIT SC DAILY@20 for 30 Days Prov:ABENA SCHMIDT 08/01/16 Insulin Aspart* (Novolog Insulin Pen*) 100 Unit/Ml Soln, 8 UNIT SC WITH MEALS for 30 Days Prov:ABENA SCHMIDT 08/01/16 Nitroglycerin* (Nitrostat*) 0.4 Mg Tab.subl, 1 TAB SL .Q5M UP TO 3 DOSES Y for CHEST PAIN for 30 Days Prov:ABENA SCHMIDT 08/01/16 Fenofibrate Nanocrystallized* (Fenofibrate*) 145 Mg Tablet, 145 MG PO DAILY for 30 Days, TAB Prov:ABENA SCHMIDT 08/01/16 Aspirin (Aspirin) 81 Mg Chew, 81 MG PO DAILY for 30 Days, TAB Prov:ABENA SCHMIDT 08/01/16 Reported Medications Metformin* (Glucophage*) 500 Mg Tab, 500 MG PO QAM, TAB 10/06/14 Allergies Allergies: Coded Allergies: No Known Allergy (Unverified , 09/27/15) PMhx/Soc Anesthesia Reaction: No Hx Neurological Disorder: No Hx Respiratory Disorders: No (PNEUMOTHORAX) Hx Cardiac Disorders: No Hx Psychiatric Problems: No Hx Miscellaneous Medical Probl: No Hx Alcohol Use: Yes Hx Substance Use: No Hx Tobacco Use: Yes Smoking Status: Current every day smoker Physical Exam Vitals Vital Signs Date Time Temp Pulse Resp B/P Pulse Ox O2 Delivery O2 Flow Rate FiO2 04/21/17 14:36 98.1 78 20 127/73 99 Physical Exam Patient is in no acute distress, vital signs stable. Alert and fully oriented. EYES: PERRLA, EOMI, Sclera and conjunctiva appear normal. EARS: Canals clear, tympanic membranes WNL THROAT: Normal oropharynx. NECK: Supple, No lymphadenopathy. Full ROM without pain or tenderness. HEART: RRR, no rubs, murmurs, clicks or gallops. LUNGS: Clear to auscultation. ABDOMEN: Soft, non-tender without masses or hepatosplenomegaly. EXTREMITIES: No edema bilaterally. BACK: Full ROM, no deformity, normal back exam NEURO: Cranial nerves grossly intact, no motor or sensory deficit Results 24 hrs [place] [id number] Radiology Main Line: [phone] DIAGNOSTIC IMAGING REPORT Patient: ASHKAN ZARCO : 1950 Age: 67 Sex: M MR #: [id number] DOS: 04/21/17 1619 Ordering MD: SANTIAGO FLORES MD Location: FT Room/Bed: PROCEDURE: XR Chest. CLINICAL INDICATION: Of a back pain. TECHNIQUE: PA and lateral chest x-ray. COMPARISON: 07/30/2016. FINDINGS: There has been no significant change. The lungs are clear. The cardiomediastinal structures are within normal limits. No focal infiltration, free pleural fluid or pneumothorax is seen. The rib cage is intact. No evidence for pneumonia. No pulmonary masses or lymphadenopathy identified. There are mild to moderate changes of thoracic spondylosis/degenerative enthesopathy. IMPRESSION: 1. No acute cardiopulmonary process identified. 2. Mild to moderate changes of degenerative enthesopathy/spondylosis. RPTAT: XX .Terry Barone MD, Date Time Electronically viewed and signed by .Terry Barone MD, MD on 04/21/2017 17: 19 .T/ CC: SANTIAGO FLORES MD Procedures/MDM Low back pain: no red flags. Differential diagnosis include but not limited to: lumbar sprain/strain, sciatica, herniated disk, UTI less likely pyelo, kidney stone. Neurovascular exam grossly intact. no clinical findings suggestive of acute infectious process, no acute deformity, no edema, no rashes. Pertinent Data: Chest x-rays: Within normal range, requested because the patient is a smoker and he is concerned that something is wrong his lungs. Physical examination and clinical presentation consistent most likely with acute on chronic back pain with muscle spasm During the ED course the patient received treatment with Toradol IM presenting overall improvement of the symptoms. Results and clinical impression discussed with recent who agrees with management. The patient is stable to be treated outpatient and will be discharged home with recommendations and close monitoring The patient was instructed to follow up with the primary care provider in the next 48h. If symptoms persist, worsen or new symptoms develop, then patient should return to the ED immediately. Instructions explained and given to patient in Kyr[place] with acknowledgment and demonstrated understanding. Disclaimer: Inadvertent spelling and grammatical errors are likely due to EHR/ dictation software use and do not reflect on the overall quality of patient care. Also, please note that the electronic time recorded on this note does not necessarily reflect the actual time of the patient encounter. Departure Diagnosis: Primary Impression: Back muscle spasm Condition: Stable Additional Instructions: Call your primary care doctor TOMORROW for an appointment during the next 1-2 days. See the doctor sooner or return here if your condition worsens before your appointment time. Thank you very much for allowing us to participate in your care. Your health and safety is our top priority at [facility]. Have prescriptions filled and follow precisely the directions on the label. Follow-up with primary care provider during the next 4 days and bring all the information and medications prescribed. If illness has not improved in 2 days, then make an appointment with primary care provider. If the provider is unavailable, return to the Emergency Department immediately. SANTIAGO FLORES MD Apr 21, 2017 16:14
--- NOTE | 2017-04-21 17:19 | RADRPT ---
PROCEDURE: XR Chest. CLINICAL INDICATION: Of a back pain. TECHNIQUE: PA and lateral chest x-ray. COMPARISON: 07/30/2016. FINDINGS: There has been no significant change. The lungs are clear. The cardiomediastinal structures are wit hin normal limits. No focal infiltration, free pleural fluid or pneumothorax is seen. The rib cage is intact. No evidence for pneumonia. No pulmonary masses or lymphadenopathy identified. There ar e mild to moderate changes of thoracic spondylosis/degenerative enthesopathy. IMPRESSION: 1. No acute cardiopulmonary process identified. 2. Mild to moderate changes of degenerative enthesopathy/spondylosis. RPTAT: XX .Terry Barone MD, MD Date Time Electronically viewed and signed by .Terry Barone MD, on 04/21/2017 17:19 .T/
[2017-04-21] MEDS ORDERED: HYDR-906 PO (17:49)
== END 2017-04-21 18:16 | disposition home or self-care (01) ==
LOC: FTE 14:33
DX: M62.830 Muscle spasm of back (principal); E11.9 Type 2 diabetes mellitus without complications; Z79.4 Long term (current) use of insulin; Z79.82 Long term (current) use of aspirin; Z79.84 Long term (current) use of oral hypoglycemic drugs; Z87.891 Personal history of nicotine dependence
CPT/HCPCS: 71020

== ENCOUNTER 2017-05-20 13:51 | Observation (INO) | END 2017-05-21 16:30 | disposition left against medical advice (07) ==

== ENCOUNTER 2017-05-25 22:14 | Observation (INO) | END 2017-05-28 18:24 | disposition home or self-care (01) ==

== ENCOUNTER 2017-06-16 07:52 | Emergency (ER) | END 2017-06-16 11:31 | disposition home or self-care (01) ==